=== PATIENT | male | born 1965 | race Caucasian/White ===

== ENCOUNTER 2021-01-09 01:33 | Day surgery (SDC) | payer BC, SELFPAY ==
[2020-12-31 12:38] VITALS: BMI 22.1
[2021-01-09 08:19] VITALS: BP 135/74; PULSE 72; RESP 16; TEMP 36.2; O2SAT 100; BMI 22.5
[2021-01-09] MEDS: LACTATED RINGERS 1,000 ML 150 ML IV CONT (08:28)
--- NOTE | 2021-01-09 09:19 | P.CONGI_ITS ---
Assessment and Plan Assessment and plan (1) Screening for colon cancer: Code(s): Z12.11 - Encounter for screening for malignant neoplasm of colon Status: Acute (2) History of colon polyps: Code(s): Z86.010 - Personal history of colonic polyps Status: Acute Assessment and Plan: Patient reports a prior history of colon polyps. He states his current weight appetite bowel movements are normal. Neoplasia screening colonoscopy is advised now and at intervals in the future. Typically 5 year intervals. GI Consult Note Consult date/time: 01/09/21 09:19 HPI: Joey Rausch is a 55 year old male Referred for screening colonoscopy. Patient has a prior history of colon polyps. He has had several previous colonoscopies. Most recent colonoscopy by Dr. Muir in 2016. Patient states that his current weight appetite bowel movements are normal. He denies abdominal pain. He has had no bleeding. Family history is noncontributory. Review of Systems Review of Systems: All systems reviewed & are unremarkable except as noted in HPI and below PMFSH Social History Social History Smoking status: Never smoker Alcohol intake: never Drinks per week: 1 Substance use: never Substance use type: does not use Living arrangements: with family Gender identity (if verbalized by the patient): Male Spiritual care concerns: No Meds Home Medications and Allergies Home Medications Medication Instructions Recorded Confirmed Type meloxicam 15 mg tablet 15 mg PO DAILY PRN 10/16/20 01/09/21 History multivitamin 1 tablet PO DAILY 10/16/20 01/09/21 History vit 1 tablet PO DAILY 10/16/20 01/09/21 History [id number]-[id number] 500 mg-50 mg-25 mg-40 mg tablet pravastatin 20 mg tablet 20 mg PO DAILY #90 tablet 11/04/20 01/09/21 Rx Allergies Allergy/AdvReac Type Severity Reaction Status Date / Time No Known Allergies Allergy Mild Verified 01/09/21 08:17 Vital Signs Vital Signs - 24 hr 01/09/21 08:19 Temperature 97.1 F L Pulse Rate 72 Respiratory Rate 16 Blood Pressure 135/74 Pulse Oximetry 100 Exam Narrative: Physical exam reveals patient to be alert. Vital signs stable. HEENT exam is unremarkable. Patient is anicteric. Lungs are clear to auscultation and percussion. Heart is without murmur or extra sounds. Abdominal exam bowel sounds are present soft nontender with no hepatosplenomegaly. Digital external rectal exam is normal.
--- NOTE | 2021-01-09 09:31 | WPDANESEPPF ---
Anes - Initial Pre Proc Eval Procedure: Operation Date: 01/09/21 09:15 Proposed Procedures p Screening Colonoscopy - Brody Michael MD Date/Time: 01/09/21 09:31 Surgeon: Brody Michael MD Pre Op Diagnosis: hx of colon polyps Patient Data Age: 55 Gender: M Height: 1.78 m Weight: 71.2 kg Last Vital Signs Temp 97.1 F L 01/09/21 08:19 Pulse 72 01/09/21 08:19 Resp 16 01/09/21 08:19 BP 135/74 01/09/21 08:19 Pulse Ox 100 01/09/21 08:19 Allergies Allergy/AdvReac Type Severity Reaction Status Date / Time No Known Allergies Allergy Mild Verified 01/09/21 08:17 Home Medications Medication Instructions Recorded Confirmed Type meloxicam 15 mg tablet 15 mg PO DAILY PRN 10/16/20 01/09/21 History multivitamin 1 tablet PO DAILY 10/16/20 01/09/21 History vit 1 tablet PO DAILY 10/16/20 01/09/21 History [id number] 500 mg-50 mg-25 mg-40 mg tablet pravastatin 20 mg tablet 20 mg PO DAILY #90 tablet 11/04/20 01/09/21 Rx Patient hx anesthesia problems: none Family hx anesthesia problems: none PMFSH Past Medical History Medical History (Updated 01/09/21 @ 09:23 by Oswald Holder MD) Mixed hyperlipidemia Social History Social History Smoking status: Never smoker Alcohol intake: never Drinks per week: 1 Substance use: never Substance use type: does not use Living arrangements: with family Gender identity (if verbalized by the patient): Male Spiritual care concerns: No Anes - Eval Final PreProcedure Day of Procedure 01/09/21 09:31 Patient weight: normal Heart: regular rate and rhythm Lungs: clear to auscultation Airway: Mallampati scale class II Neurological: alert and oriented Last oral intake: >/= 8 hours ASA classification: II Emergent: no Anesthetic plan: proceed Anesthesia type and monitoring: general GIVS and standard monitoring Informed Consent: The patient's anesthetic plan and its attendant risks and benefits were discussed with the patient/family/POA. Questions were solicited and answers provided to the satisfaction of the patient/family/POA.
[2021-01-09 09:51] VITALS: BP 111/69; PULSE 62; RESP 15; O2SAT 100
[2021-01-09 10:01] VITALS: BP 118/82; PULSE 55; RESP 17; O2SAT 99
[2021-01-09 10:11] VITALS: BP 124/88; PULSE 54; RESP 14; O2SAT 100
== END 2021-01-09 10:20 | disposition home or self-care (01) ==
PROVIDERS: PCP Internal Medicine; Visit Provider Internal Medicine Gastroenterology
PROC: 0DJD8ZZ Inspection of Lower Intestinal Tract, Via Natural or Artificial Opening Endoscopic (ICD-10-PCS; CPT 45378; principal; 2021-01-09 09:15)
DX: Z12.11 Encounter for screening for malignant neoplasm of colon (principal); Z86.010 Personal history of colon polyps; K64.8 Other hemorrhoids
CPT/HCPCS: 45378; J2704; J7120

== ENCOUNTER 2021-05-19 08:31 | Outpatient (CLI) | payer BC, SELFPAY ==
--- NOTE | 2021-05-19 08:44 | EST_ITS ---
Patient Info Name: Joey Rausch Age: 55 years : 1965 Gender: Male Ht: 70 in Wt: 155 lbs BSA: 1.86 m2 HR: 70 bpm BP: 134 / 74 mmHg Heart Rhythm: Sinus Rhythm Exam Date: 05/19/2021 9:01 AM Exam Location: [facility] Stress Patient Status: Outpatient Admit Date: 05/19/2021 Staff Ordering Physician: Vy Hirsch Attending Provider: Vy Hirsch Exercise Technologist: Aleyda Hill CT Exercise Physician: Bk Borden DO Exam Type: CA stress test treadmill Study Info Indications R06.02 - Shortness of breath An exercise stress test was performed. Summary 1. 1. Negative Luis F exercise stress test for ischemic ST changes by ECG criteria. 2. 2. Good functional capacity, achieving 12 METs of workload. 3. 3. Appropriate HR response to exercise. 4. 4. Appropriate HR recovery at 1 minute post exercise. 5. 5. No imaging with stress testing. 6. 6. Patient informed of the above results. Protocol: Luis F Stress ECG Details Stage: REST Duration (min): 1 min : 19 sec Speed (mph): 0.0 Grade (%): 0 HR (bpm): 68 SBP (mmHg): 134 DBP (mmHg): 74 METS: --- Stage: REST Duration (min): 6 min : 5 sec Speed (mph): 0.0 Grade (%): 0 HR (bpm): 75 SBP (mmHg): 134 DBP (mmHg): 74 METS: --- Stage: STAGE 1 Duration (min): 1 min : 0 sec Speed (mph): 1.7 Grade (%): 10 HR (bpm): 88 SBP (mmHg): 134 DBP (mmHg): 74 METS: --- Stage: STAGE 1 Duration (min): 2 min : 0 sec Speed (mph): 1.7 Grade (%): 10 HR (bpm): 107 SBP (mmHg): 134 DBP (mmHg): 74 METS: --- Stage: STAGE 1 Duration (min): 3 min : 0 sec Speed (mph): 1.7 Grade (%): 10 HR (bpm): 96 SBP (mmHg): 180 DBP (mmHg): 76 METS: --- Stage: STAGE 2 Duration (min): 1 min : 0 sec Speed (mph): 2.5 Grade (%): 12 HR (bpm): 113 SBP (mmHg): 180 DBP (mmHg): 76 METS: --- Stage: STAGE 2 Duration (min): 2 min : 0 sec Speed (mph): 2.5 Grade (%): 12 HR (bpm): 113 SBP (mmHg): 188 DBP (mmHg): 71 METS: --- Stage: STAGE 2 Duration (min): 3 min : 0 sec Speed (mph): 2.5 Grade (%): 12 HR (bpm): 118 SBP (mmHg): 188 DBP (mmHg): 71 METS: --- Stage: STAGE 3 Duration (min): 1 min : 0 sec Speed (mph): 3.4 Grade (%): 14 HR (bpm): 131 SBP (mmHg): 201 DBP (mmHg): 73 METS: --- Stage: STAGE 3 Duration (min): 2 min : 0 sec Speed (mph): 3.4 Grade (%): 14 HR (bpm): 140 SBP (mmHg): 201 DBP (mmHg): 73 METS: --- Stage: STAGE 3 Duration (min): 3 min : 0 sec Speed (mph): 3.4 Grade (%): 14 HR (bpm): 147 SBP (mmHg): 209 DBP (mmHg): 76 METS: --- Stage: STAGE 4 Duration (min): 1 min : 0 sec Speed (mph): 4.2 Grade (%): 16 HR (bpm): 162 SBP (mmHg): 209 DBP (mmHg): 76 METS: --- [place]
== END 2021-05-19 08:32 | disposition home or self-care (01) ==
PROVIDERS: PCP Internal Medicine; Visit Provider Nurse Practitioner
DX: R06.02 Shortness of breath (principal)
CPT/HCPCS: 93017

== ENCOUNTER → 2021-05-19 09:30 | Outpatient (CLI) | payer BC, SELFPAY ==
--- NOTE | ~2021-05-19 | XR_ITS ---
XR chest 2V DATE: 05/19/2021 09:41 INDICATION: Shortness of breath TECHNIQUE: 2 views COMPARISON: None FINDINGS: Normal heart size. No hilar or mediastinal enlargement. There is bilateral hyperinflation. No pulmonary infiltrate or consolidation, pleural effusion or pulm onary vascular congestion or pneumothorax is detected. Mild degenerative change of the thoracic spine. IMPRESSION: Bilateral hyperinflation Reviewed, dictated and finalized at location A. MAKER HELPER IMPRESSION: Bilateral hyperinflation
== END ==
PROVIDERS: Visit Provider Nurse Practitioner
DX: R06.02 Shortness of breath (principal); M47.814 Spondylosis without myelopathy or radiculopathy, thoracic region
CPT/HCPCS: 71046

== ENCOUNTER 2023-11-03 13:41 | Outpatient (CLI) | payer BC, SELFPAY ==
--- NOTE | ~2023-11-03 | XR_ITS ---
XR knee RT 3V Ordering provider: Umair Nelson MD History: . NO INJURY BILATERAL KNEE PAIN . Comparison: None. FINDINGS: BONES: No acute fracture or dislocation. Postoperative changes in the distal metaphysis of the femur and proximal tibia. JOINT SPACES: Chondrocalcinosis in the medial and lateral menisci. SOFT TISSUES: Normal. IMPRESSION: No acute osseous abnormality right knee. Postoperative changes. Chondrocalcinosis. Reviewed, dictated and finalized at location A.
--- NOTE | ~2023-11-03 | XR_ITS ---
XR knee LT 3V 11/03/2023 14:02 Indication: Left knee pain Procedure: 3 views left knee Comparison: No prior studies for comparison. Findings: There is mild osteoarthritis of the left knee. There is chondrocalcinosis. There are change s of ACL repair. No acute fracture or traumatic malalignment. Impression: 1: Mild osteoarthritis of the left knee with chondrocalcinosis. 2: No acute fracture or traumatic malalignment. Reviewed, dictated and finalized at location B. Impression: 1: Mild osteoarthritis of the left knee with chondrocalcinosis. 2: No acute fracture or traumatic malalignment.
== END 2023-11-03 13:42 ==
PROVIDERS: PCP Family Medicine; Visit Provider Family Medicine
DX: M11.261 Other chondrocalcinosis, right knee (principal); M11.262 Other chondrocalcinosis, left knee; M17.12 Unilateral primary osteoarthritis, left knee; Z98.890 Other specified postprocedural states
CPT/HCPCS: 73562

== ENCOUNTER 2023-11-04 14:56 | Emergency (ER) | payer BC, SELFPAY ==
--- NOTE | ~2023-11-04 | XR_ITS ---
EXAMINATION: XR finger 1st LT min 2V DATE: 11/04/2023 15:28 INDICATION: Blunt trauma to the left thumb TECHNIQUE: Dorsal palmar, lateral and oblique views of the left first digit were obtained COMPARISON: None FINDINGS: Nondisplaced extra articular fracture extending across the diaphysis of the left first distal phalanx . There is an old healed fracture at the dorsal base of the first distal phalanx with residual thin c erclage wire. No other fractures identified. Small amount of chondrocalcinosis at the wrist, triscaph e and first metacarpophalangeal joints. Polyarticular osteoarthritis, mild to moderate at the first c arpometacarpal joint and mild at the triscaphe, first metacarpophalangeal and first interphalangeal j oints. IMPRESSION: 1. Nondisplaced extra-articular diaphyseal fracture of the left first distal phalanx. Reviewed, dictated and finalized at location A. IMPRESSION: 1. Nondisplaced extra-articular diaphyseal fracture of the left first distal ph alanx.
[2023-11-04 15:16] VITALS: BP 136/93; PULSE 84; RESP 16; TEMP 37.3; O2SAT 99
--- NOTE | 2023-11-04 15:21 | ED.GENADULT ---
HPI - General Adult General Chief complaint: Extremity Injury, Upper Stated complaint: left thumb injury Time Seen by Provider: 11/04/23 15:34 Source: patient, RN notes reviewed and old records reviewed Mode of arrival: ambulatory Limitations: no limitations History of Present Illness HPI narrative: 57-year-old male to [facility] for complaint left distal thumb pain after closing it in tailgate of vehicle prior to arrival. Patient endorses history of surgical tendon repair to same digit. Patient denies numbness, pain radiating up into the hand or wrist. Patient no acute distress. Related Data Allergies Allergy/AdvReac Type Severity Reaction Status Date / Time No Known Allergies Allergy Mild Verified 11/02/23 09:14 Review of Systems Review of Systems: All systems reviewed & are unremarkable except as noted in HPI and below Constitutional: Constitutional: Reports no additional constitutional complaints Eyes: Eyes: Reports no additional eye complaints ENT: Reports system reviewed and no additional complaints, except as documented Cardiovascular: Cardiovascular: Reports no additional cardiovascular complaints, Denies chest pain and Denies dyspnea Respiratory: Respiratory: Reports no additional respiratory complaints, Denies cough and Denies dyspnea Musculoskeletal: Musculoskeletal: Reports no additional musculoskeletal complaints Neurologic: Reports system reviewed and no additional complaints, except as documented Psychiatric: Psychiatric: Reports no additional psychiatric complaints PMFSH Past Medical History Medical History Mixed hyperlipidemia Social History Social History Smoking status: Never smoker Alcohol intake: current Drinks per week: 0 Alcohol use details: 1 drink every 3-4 weeks Substance use: never Substance use type: does not use Lack of Transportation: No Lack of Food: Never True Current Housing: I Do Not Have Housing Concerned About Future Housing: No Difficulty Paying Gas/Electric Bills: No Difficulty Paying for Meds: No Currently Unemployed: No Education: Bachelor's Degree Difficulty w/ Childcare or Family Care: No Living arrangements: with family Gender identity (if verbalized by the patient): Male Spiritual care concerns: No Comments At the time of my signature, I reviewed and agree with the nursing past medical, surgical, social, and family history. There is no relevant family history pertinent to the patient complaint. Exam Const: General: cooperative, healthy appearing, comfortable, no acute distress, alert and well nourished Nutritional Appearance: well nourished Orientation/consciousness: patient oriented x3 Limitations: no limitations HENMT: Head: normal to inspection Ears: external ears normal Face/Nose/Sinus: Normal external nose present, Normal nares present, normal facial exam, No erythema and No edema Face and sinus: normal facial exam, no erythema and no edema Mouth: Yes Normal oral and palatal mucosa present Eyes: General: appearance normal, both eyes and all related structures Neck: Neck: normal visual inspection, full ROM and no meningeal signs Lymphatic: no lymphadenopathy noted and no lymphedema noted Chest: Chest palpation & inspection: normal inspection of the chest Resp: Effort & Inspection: normal respiratory effort and able to speak in complete sentences Auscultation: clear to auscultation bilaterally Cardio: Jugular venous distension: no JVD Rate: regular rate Rhythm: regular rhythm Back/Spine/Pelvis: Cervical Spine: cervical ROM normal Skin: General skin exam: normal color, no rashes or lesions noted and turgor normal Neuro: General: patient oriented x3, gait normal, moves all extremities and no meningeal signs Speech: normal speech Gait exam (Neuro): Normal gait present Extrem: General: normal to insp
== END 2023-11-04 16:25 | disposition home or self-care (01) ==
PROVIDERS: Emergency Provider Nurse Practitioner Family; PCP Family Medicine
DX: S62.525A Nondisplaced fracture of distal phalanx of left thumb, initial encounter for closed fracture (principal); X58.XXXA Exposure to other specified factors, initial encounter; E78.2 Mixed hyperlipidemia
CPT/HCPCS: 29130; 73140; 99214; G0463

== ENCOUNTER 2023-11-24 15:37 | Outpatient (CLI) | payer BC, SELFPAY ==
--- NOTE | ~2023-11-24 | XR_ITS ---
EXAMINATION: XR finger 1st LT min 2V DATE: 11/24/2023 16:12 INDICATION: Fracture of unspecified phalanx of left thumb. TECHNIQUE: 3 views of left thumb were obtained. COMPARISON: Left thumb radiograph 11/04/2023 FINDINGS: There is a comminuted intra-articular fracture of first distal phalanx. There is a [place] o f wire involving the dorsal basal fracture fragment. The dorsal basal fracture fragment is displaced 2 mm posterior relative to the rest of the bone. There is mild osteoarthritis of first carpometacarpa l joint, first metacarpophalangeal joint, and first interphalangeal joint. IMPRESSION: 1. Comminuted fracture of first distal phalanx with interval worsening in alignment. Reviewed, dictated and finalized at location E. IMPRESSION: 1. Comminuted fracture of first distal phalanx with interval worsening in align ment.
== END 2023-11-24 15:38 ==
PROVIDERS: PCP Family Medicine; Visit Provider Family Medicine
DX: S62.522A Displaced fracture of distal phalanx of left thumb, initial encounter for closed fracture (principal)
CPT/HCPCS: 73140

== ENCOUNTER 2023-12-22 13:07 | Outpatient (CLI) | payer BC, SELFPAY ==
--- NOTE | ~2023-12-22 | XR_ITS ---
XR finger 1st LT min 2V 12/22/2023 14:06 Indication: Left thumb fracture Procedure: 3 views left first finger Comparison: 11/24/2023 Findings: Comminuted intra-articular fracture left first distal phalanx. There is a cerclage wire ove rlying the dorsal basal fracture fragment which is displaced approximately 2 mm. Moderate soft tissue swelling. Mild osteoarthritis of the first carpal metacarpal joint. No significant interval healing. Impression: 1: Stable alignment of comminuted fracture left first distal phalanx without significant interval helottie lakhani. Reviewed, dictated and finalized at location B. Impression: 1: Stable alignment of comminuted fracture left first distal phalanx without si gnificant interval healing.
== END 2023-12-22 13:08 ==
PROVIDERS: PCP Family Medicine; Visit Provider Plastic Surgery
DX: S62.522A Displaced fracture of distal phalanx of left thumb, initial encounter for closed fracture (principal); X58.XXXA Exposure to other specified factors, initial encounter
CPT/HCPCS: 73140

== ENCOUNTER 2024-02-01 16:27 | Emergency (ER) | payer BC, SELFPAY ==
--- NOTE | ~2024-02-01 | XR_ITS ---
EXAMINATION: XR foot LT min 3V DATE: 02/01/2024 16:49 INDICATION: Left foot pain. Injury. TECHNIQUE: 4 views of left foot were obtained. COMPARISON: None. FINDINGS: Bone alignment is normal. No fracture. There is mild osteoarthritis of first metatarsophala ngeal joint and talonavicular joint. There is an enthesophyte at plantar aspect of calcaneal tuberosi ty. IMPRESSION: 1. Mild polyarticular osteoarthritis. Reviewed, dictated and finalized at location A.
[2024-02-01 16:49] VITALS: BP 157/81; PULSE 86; RESP 16; TEMP 37.4; O2SAT 100
[2024-02-01] MEDS: TETANUS,DIPHTHERIA,AC PERTUSSIS ADULT (0.5 ML) BOOSTRIX IM (17:25)
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
== END 2024-02-01 17:30 | disposition home or self-care (01) ==
PROVIDERS: Emergency Provider Nurse Practitioner Family; PCP Family Medicine
DX: S93.602A Unspecified sprain of left foot, initial encounter (principal); S90.32XA Contusion of left foot, initial encounter; V18.4XXA Pedal cycle driver injured in noncollision transport accident in traffic accident, initial encounter; Z23 Encounter for immunization
CPT/HCPCS: 73630; 90471; 90715; 99213; G0463

== ENCOUNTER 2024-02-23 11:59 | Outpatient (CLI) | payer BC, SELFPAY ==
--- NOTE | ~2024-02-23 | CT_ITS ---
EXAMINATION: CT abdomen pelvis w con DATE: 02/23/2024 12:27 INDICATION: Right lower quadrant abdominal pain. TECHNIQUE: Computed tomography (CT) of the abdomen and pelvis was performed with 100 mL Omnipaque 350 intravenous contrast. Automated exposure control and iterative reconstruction technique were employe d. The dose-length product was 396.30 mGy-cm. COMPARISON: None. FINDINGS: The visualized portions of lung bases demonstrate mild atelectasis. No pleural effusion. Th e heart size is normal. No pericardial effusion. The liver, gallbladder, spleen, pancreas, adrenal gl ands, and left kidney are normal. There is a 7 mm cyst in right kidney. The appendix is normal. There is a right inguinal hernia containing fat. There is diverticulosis of the colon without evidence of diverticulitis. There is fat stranding around an epiploic appendage of ascending colon, consistent wi th epiploic appendagitis. There are no pathologically enlarged lymph nodes. There is no ascites. Ther e is severe lumbar spondylosis. IMPRESSION: 1. Epiploic appendagitis of ascending colon. 2. Right inguinal hernia containing fat. Reviewed, dictated and finalized at location A.
== END 2024-02-23 12:00 | disposition home or self-care (01) ==
LOC: ANHIMG 12:03
PROVIDERS: PCP Family Medicine; Visit Provider Nurse Practitioner Family
DX: K63.89 Other specified diseases of intestine (principal); K40.90 Unilateral inguinal hernia, without obstruction or gangrene, not specified as recurrent; R10.31 Right lower quadrant pain
CPT/HCPCS: 74177; Q9967

== ENCOUNTER 2024-10-24 09:14 | Emergency (ER) | payer BC, SELFPAY ==
--- NOTE | 2024-10-24 09:17 | ED.URI ---
HPI - URI/Sore Throat General Chief Complaint: Upper Respiratory Infection Stated Complaint: Sore Throat Time Seen by Provider: 10/24/24 09:34 Source: patient and RN notes reviewed Mode of arrival: ambulatory Limitations: no limitations History of Present Illness HPI Narrative: 58-year-old male presents with concern for 3 day history of sore throat mainly on the left side. Reports today started having nasal congestion and postnasal drainage. He denies fever, aches, chills, sweats. Reports his doctor suggested he get checked out. MD elicited complaint: sore throat Related Data Allergies Allergy/AdvReac Type Severity Reaction Status Date / Time No Known Allergies Allergy Mild Verified 10/24/24 09:20 Review of Systems Review of Systems: CONSTITUTIONAL: Denies malaise, chills, sweats, or fever. EYES: Denies visual changes, redness, or discharge. ENT: Reports rhinorrhea, congestion, and sore throat. CARDIOVASCULAR: Denies chest pain, palpitations, or edema. RESPIRATORY: Denies cough. Denies dyspnea. GASTROINTESTINAL: Denies abdominal pain, nausea, vomiting, diarrhea SKIN: Denies rash or itching. MUSCULOSKELETAL: Denies myalgia. NEUROLOGIC: Denies headache. All systems reviewed & are unremarkable except as noted in HPI and below PMFSH Past Medical History Medical History Mixed hyperlipidemia Surgical History Surgical History History of knee surgery Social History Social History Smoking status: Never smoker Alcohol intake: current Drinks per week: 0 Alcohol use details: 1 drink every 3-4 weeks Substance use: never Substance use type: does not use Do You Feel Safe in your Home?: Yes Lack of Transportation: No Lack of Food: Never True Current Housing: I Do Not Have Housing Concerned About Future Housing: No Difficulty Paying Gas/Electric Bills: No Difficulty Paying for Meds: No Currently Unemployed: No Education: Bachelor's Degree Difficulty w/ Childcare or Family Care: No Living arrangements: with family Gender identity (if verbalized by the patient): Male Spiritual care concerns: No Comments At time of signature, agree with nursing past medical, surgical, social and family history. There is no relevant family history pertinent to the presenting complaint Exam Narrative: GENERAL: Well-appearing, well-nourished, and in no acute distress. HEAD: Normocephalic EYES: PERRLA, conjunctivae clear ENT: Nares clear. Mucous membranes moist. TM pearly lawson with sharp light reflex bilaterally; no tragal tenderness. Oropharynx mildly erythematous without lesions. Tonsils not enlarged and without exudate, no drooling, no hoarseness, no trismus, uvula midline. NECK: Supple. No lymphadenopathy CHEST: Clear to auscultation, breath sounds equal. No wheezing, rhonchi, rales, or stridor. No respiratory distress, speaks in full sentences. HEART: Regular rate and rhythm. No murmur heard. SKIN: Warm, dry, no rash. NEURO: Alert and oriented x3. PSYCH: Normal mood and affect Course Course Emergency Course: Patient is aware of diagnosis, understands and agrees to treatment plan. Anticipatory guidance given. Patient agrees to follow-up as directed and is aware of reasons to seek care at the emergency department. Portions of this record may have been created with voice recognition software Level of Care: [facility] Visit Vital Signs Vital signs: Reviewed. MDM - URI/Sore Throat MDM Narrative Medical decision making narrative: Differential diagnosis considered: De Santiago virus, strep pharyngitis, allergic rhinitis, upper respiratory tract infection, sinusitis, rhinosinusitis, nasopharyngitis. viral pharyngitis, otitis media, otitis externa, pneumonia, bronchitis, viral cough syndrome, viral syndrome, and influenza. Exam findings show no acute concerns or changes; patient is non-toxic appearing and is in no distress. Patient is appropriate for outpatient treatment and follow-up. Lab Data Attestation: I reviewed the patient's lab results. Critical Care Time Critical Care Time Critical Care Time: No Discharge Plan Discharge Clinical Impression: Upper respiratory infection Patient Disposition: Home Condition: Stable Instructions: Upper Respiratory Infection (ED) Additional Instructions: Your rapid strep swab was negative today at [facility]. A throat culture will be sent to the laboratory for further testing. If the test is positive, you will receive a phone call within 48 hours and an appropriate antibiotic will be initiated at that time. Your symptoms are likely due to a viral illness, which is not treated with antibiotics. Viral symptoms can be present for up to a few weeks. -Alternate Tylenol and Motrin per package directions for fever or pain. -Antihistamine medication such as Benadryl at night and Zyrtec during the day can help improve symptoms. -Eat and drink things that are easy to swallow, like tea or soup, or popsicles to suck on. -Oral rinses such as: Salt water gargles and/or may use topical anesthetic (eg. Chloraseptic spray) or lozenges to relieve dryness or throat pain). -Frequent hand washing or hand electric power machine operator is one of the best ways to prevent spread of infection. -Follow up with primary care provider in 2-3 days if condition is not improving; or seek ER visit if you have trouble breathing, cannot drink enough fluids, have muffled voice, difficulty opening your mouth, or severe swelling. Patient Language: Persian Prescriptions: New pseudoephedrine HCl [12 Hour Decongestant] 120 mg tablet extended release 120 mg PO Q12H PRN (Reason: nasal congestion) Qty: 20 0RF ipratropium bromide 21 mcg (0.03 %) spray,non-aerosol 2 spray NASAL TID PRN (Reason: nasal drainage) Qty: 30 0RF Rx Instructions: administer into each nostril No Action pravastatin 20 mg tablet See Rx Instructions .ROUTE .COMPLEX Qty: 90 0RF Dose Instruction: TAKE 1 TABLET BY MOUTH DAILY Rx Instructions: TAKE 1 TABLET BY MOUTH DAILY Follow-up/Referrals: Umair Nelson MD [Primary Care Provider] - Time of Disposition: 09:41
[2024-10-24 09:30] VITALS: BP 143/86; PULSE 79; RESP 14; TEMP 36.6; O2SAT 99
[2024-10-24 09:46] LABS: EDSTREPNEGPOS1 Negative (Negative)
== END 2024-10-24 09:45 | disposition home or self-care (01) ==
PROVIDERS: Emergency Provider Nurse Practitioner; PCP Family Medicine
DX: J06.9 Acute upper respiratory infection, unspecified (principal); E78.2 Mixed hyperlipidemia
CPT/HCPCS: 87081; 87880; 99213; G0463

== ENCOUNTER 2024-12-01 11:09 | Outpatient (CLI) | payer BC, SELFPAY ==
--- NOTE | ~2024-12-01 | XR_ITS ---
Lumbosacral Spine: AP and lateral views Clinical History: Pain Findings: The normal lordotic curve is maintained. The vertebral bodies and posterior elements are i ntact. There is mild degenerative disc narrowing at L4-L5. There is moderate to advanced facet arthro khang throughout the lumbar spine, worst at L3-S1.. The sacroiliac joints are normally outlined. Impression: Moderate degenerative spondylosis, as above. Reviewed, dictated and finalized at location M. Impression: Moderate degenerative spondylosis, as above.
--- NOTE | ~2024-12-01 | US_ITS ---
US soft tissue groin LT 12/01/2024 11:29 Indication: Left inguinal groin pain Procedure: High-resolution Limited ultrasound of the left groin Comparison: No prior studies for comparison. Findings: There is bowel with motility extending into the left inguinal canal consistent with hernia. Impression: 1: Left inguinal hernia. Reviewed, dictated and finalized at location A. Impression: 1: Left inguinal hernia.
== END 2024-12-01 11:10 | disposition home or self-care (01) ==
LOC: MICIMG 11:10
PROVIDERS: PCP Family Medicine; Visit Provider Family Medicine
DX: K40.90 Unilateral inguinal hernia, without obstruction or gangrene, not specified as recurrent (principal); M47.816 Spondylosis without myelopathy or radiculopathy, lumbar region; M51.369 Other intervertebral disc degeneration, lumbar region without mention of lumbar back pain or lower extremity pain
CPT/HCPCS: 72100; 76882

== ENCOUNTER 2025-01-01 08:54 | Outpatient (CLI) | payer BC, SELFPAY ==
--- NOTE | ~2025-01-01 | US_ITS ---
EXAMINATION: US soft tissue groin RT DATE: 01/01/2025 09:12 INDICATION: Bilateral inguinal hernia without obstruction TECHNIQUE: Multiple grayscale and Doppler ultrasound images of the right inguinal region were obtaine d. COMPARISON: CT dated 03/04/2024 FINDINGS: A loop of peristalsing bowel is seen deep to the distal right rectus abdominis muscle medial to the r ight hypogastric artery and vein. No evident hernia identified. The imaged region is positioned cepha lad to the right inguinal canal. A very small fat-containing right femoral hernia was identified at t he time of the prior CT. IMPRESSION: 1. Imaged region appears normal but is located slightly cephalad to the entrance to the right inguina l canal where there was a very small fat-containing inguinal hernias at the time of the prior CT. Reviewed, dictated and finalized at location A. IMPRESSION: 1. Imaged region appears normal but is located slightly cephalad to the entranc e to the right inguinal canal where there was a very small fat-containing ingui nal hernias at the time of the prior CT.
== END 2025-01-01 08:55 | disposition home or self-care (01) ==
LOC: MICIMG 08:55
PROVIDERS: PCP Family Medicine; Visit Provider Surgery
DX: K40.90 Unilateral inguinal hernia, without obstruction or gangrene, not specified as recurrent (principal)
CPT/HCPCS: 76882

== ENCOUNTER 2025-01-09 09:29 | Outpatient (CLI) | payer BC, SELFPAY ==
--- OUTSIDE RECORDS SUMMARY | 2009-05-14 07:45 | XMS_ITS | Continuity of Care Document ---
Author Organization [facility] Address [address] [facility] [address] [place] [address] Phone Care Team Providers Care Shooter'S Helper Name Role Phone Nicole Coker Unavailable Unavailable Procedures Procedure Date Eye Exam Established Pt Eye Exam, New Patient Advance Directives Directive Yes / No Effective Date File Name No Information Encounters Encounter Description Practice Location Reason(s) For Visit Diagnoses Date Provider Providers Copied on Encounter [facility], [address] [place] [address] [address], [place], [place], [id number], tel:[phone] [facility] No Information 9-200 9 Sheela Rivera. [address] , [address], [place], [place], [facility], . tel:[phone] [facility], [address] [place] [address] [address], [place], [place], [id number], tel:[phone] [facility] No Information 5-200 9 Sheela Bradley [address] , [address], [place], [place], [facility], [place]. tel:[phone] Family History Family Member Type Diagnosis Age At Onset No Information Payers Payer name Insurance type Covered constitution party ID Authoriza tion(s) No Information Social History Type Description Quantity Date Captured Comments Sex Male Smoking Status No Information Chief Complaint And Reason For Visit No Information Reason For Referral Reason For Referral No Information History Of Present Illness Encounter Date Complaint History Of Prese nt Illness No Information Functional Status Date Functional Assessmen t No Information Instructions Date Instruction Additional Infor mation No Information Assessments Type Assessment Date No Information Patient Care Teams Name Effective Dates (start - stop) Status Members No Information
--- NOTE | 2025-01-09 09:44 | ECG_ITS ---
Test Date: 2025-01-09 09:51:57 Measurements Intervals Colbert Rate: 62 P: 2 PA: 171 QRS: 39 QRSD: 110 T: 47 QT: 369 QTc: 376 Interpretive Statements SINUS RHYTHM BASELINE ARTIFACT- I, III, AVR, AVL, AVF NORMAL ECG No previous ECG available for comparison Electronically Signed On 01-09-2025 09:53:54 CDT by Bk Borden D.O.
--- OUTSIDE RECORDS SUMMARY | 2025-01-09 09:53 | XMS_ITS | Clinical Summary ---
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 09/03/2014 Social History Tobacco Use Types Packs/Day Years Used Date Smoking Tobacco: Never Assessed Sex and Gender Information Value Date Recorded Sex Assigned at Not on file 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 Gender Identity Male 01/03/2023 8:20 AM CDT Sexual Orientation Not on file Obstetrics History Last Filed Vital Signs Vital Sign Reading Time Taken Comments Blood Pressure 130/70 01/04/2023 9:00 AM CDT Pulse 70 01/04/2023 9:00 AM CDT Temperature 37.1 C (98.8 F) 01/04/2023 9:00 AM CDT Respiratory Rate 16 01/04/2023 9:00 AM CDT Oxygen Saturation 97% 01/04/2023 9:00 AM CDT Inhaled Oxygen Concentration - - Weight 73.2 kg (161 lb 6.4 oz) 01/04/2023 9:00 A M CDT Height 175.3 cm (5' 9) 01/04/2023 9:00 AM CDT Body Mass Index 23.83 01/04/2023 9:00 AM CDT Plan of Treatment Health Maintenance Due Date Last Done Comments Colon Cancer Screening-Colonoscopy 1964 Depression Screening 1964 Hepatitis C Screening 1964 Prostate Cancer Screening-PSA 1964 DTaP/Tdap/Td Vaccine (1 - Tdap) 12/23/1975 Hepatitis B Screening 1982 Regular Well Visit/Exam 18-64 1982 Covid-19 Vaccine ( - season) 2024 03/03/2022, 03/14/2021, 08/25/2020, Additional history exists Influenza Vaccine (#1) 2025 , 02/26/2021, 02/15/2020, Additional history exists Zoster Vaccine Completed 01/13/2022, 07/14/2021 Pneumococcal vaccine <65 Aged Out No longer eligible based on patient's age to complete this topic Insurance CHOICE [facility] PPO [place] Care Teams Deployment Technician Relationship Specialty Start Date End Date Umair Nelson MD PCP - General Family Practice 01/04/23
--- OUTSIDE RECORDS SUMMARY | 2025-01-09 09:54 | XMS_ITS | Clinical Summary ---
Author Organization [facility] Address [address] [place] [address] Care Team Providers Care Rn Long Term Care Name Role Phone Pro Berger MD Primary Care Provider [phone] Source Comments [facility],non-[facility] Affiliates and Associated Physician Practices is amultiple site organization consisting of ambulatory clinics and hospital sitesin [place], [place], [place] and [place]. This disclosure is being madepursuant to the Care Everywhere program and may not contain all information available regarding this patient. 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 Gender Identity Not on file Sexual Orientation Not on file Last Filed Vital Signs Vital Sign Reading Time Taken Comments Blood Pressure 122/81 12/03/2014 2:48 PM CDT Pulse 66 12/03/2014 2:48 PM CDT Temperature 36.7 C (98.1 F) 10/17/2014 1:03 PM CDT Respiratory Rate - - Oxygen Saturation 99% 12/03/2014 2:48 PM CDT Inhaled Oxygen Concentration - - Weight 72.6 kg (160 lb) 12/03/2014 2:48 PM CDT Height 177.8 cm (5' 10) 12/03/2014 2:48 PM CDT Body Mass Index 22.96 12/03/2014 2:48 PM CDT Plan of Treatment Health Maintenance Due Date Last Done Comments COLOGUARD (AGES 45-75) - COL ON CA SCREENING 1964 COLON MONITORING 1964 COLONOSCOPY - COLON CA SCREENING 1964 CT COLONOGRAPHY - COLON CA SCREENING 1964 Colorectal Cancer Screening 1964 FIT - COLON CA SCREENING 1964 FLEX SIG - COLON CA SCREENING 1964 LIPID TESTING 1964 HIV SCREENING 12/23/1979 HEPATITIS C SCREENING 12/18/1982 DTAP/TDAP/TD VACCINES (1 - Tdap) 12/23/1983 PNEUMOCOCCAL VACCINE 50+ (1 of 1 - PCV) 2014 ZOSTER VACCINE (1 of 2) 2014 COVID-19 VACCINE (1 - 2023-2 5 season) 2024 DEPRESSION SCREENING 05/17/2024 INFLUENZA VACCINE (#1) 2025 Respiratory Syncytial Virus (RSV) Vaccine Pt: or over 60 yrs (1 - 1-dose 75+ series) 12/23/2039 HEPATITIS B VACCINE Aged Out No longe r eligible based on patient's age to complete this topic HIB VACCINE Aged Out No longer eligi ble based on patient's age to complete this topic HPV VACCINE Aged Out No longer eligi ble based on patient's age to complete this topic MENINGOCOCCAL (Group B) VACC INE SHARED DECISION-MAKING Aged Out No longer eligibl e based on patient's age to complete this topic MENINGOCOCCAL GROUPS A/C/Y/W VACCINE Aged Out No longer eligible b ased on patient's age to complete this topic Insurance [facility] Care Teams Rn Long Term Care Relationship Specialty Start Date End Date Pro Berger MD [address] [place] [address] PCP - General 07/07/11
[2025-01-09 10:00] LABS: Hematocrit 43.4 % (42.0-52.0); Hemoglobin 14.3 g/dL (14.0-18.0); Immature Granulocyte Percent A 0.3 % (0-0.5); Lymphocytes Absolute Auto 2.37 K/mm3 (0.9-3.2); Mean Corpuscular HGB Conc 32.9 g/dl (32-36); Mean Corpuscular Hemoglobin 30.3 pg (26-34); Mean Corpuscular Volume 91.9 fl (80-100); Nucleated Red Blood Cells Absolute Auto 0.000 K/mm3 (0.0-0.012); Nucleated Red Blood Cells Perc 0.0 % (0.0-0.2); Platelet Count Result 268 k/mm3 (150-375); Red Blood Count 4.72 M/mm3 (4.6-6.20); White Blood Count 6.5 K/mm3 (4.5-10.0)
== END 2025-01-09 09:30 | disposition home or self-care (01) ==
LOC: ANHSURGERY 09:33
PROVIDERS: PCP Family Medicine; Visit Provider Surgery
DX: Z01.818 Encounter for other preprocedural examination (principal); E78.2 Mixed hyperlipidemia; K40.90 Unilateral inguinal hernia, without obstruction or gangrene, not specified as recurrent
CPT/HCPCS: 36415; 85025; 86850; 86900; 86901; 93005

== ENCOUNTER 2025-01-12 01:38 | Day surgery (SDC) | payer BC, SELFPAY ==
--- OUTSIDE RECORDS SUMMARY | 2009-05-14 07:45 | XMS_ITS | Continuity of Care Document ---
Author Organization [facility] Address [address] [facility] [address] [place] [address] Phone Care Team Providers Care Roof Panel Hanger Name Role Phone Nicole Coker Unavailable Unavailable Procedures Procedure Date Eye Exam Established Pt Eye Exam, New Patient Advance Directives Directive Yes / No Effective Date File Name No Information Encounters Encounter Description Practice Location Reason(s) For Visit Diagnoses Date Provider Providers Copied on Encounter [facility], [address] [place] [address] [address], [place], [place], [id number], tel:[phone] [facility] No Information 9-200 9 Sheela Rivera. [address] , [address], [place], [place], [facility], . tel:[phone] [facility], [address] [place] [address] [address], [place], [place], [id number], tel:[phone] [facility] No Information 5-200 9 Sheela Bradley [address] , [address], [place], [place], [facility], [place]. tel:[phone] Family History Family Member Type Diagnosis Age At Onset No Information Payers Payer name Insurance type Covered democrat ID Authoriza tion(s) No Information Social History [...]
--- NOTE | 2025-01-05 13:42 | PC.NURSE ---
Report to the Outpatient Waiting Room, entrance under the green pavilion located off [facility], at time __10 AM on date __01/12/25 . Planned Procedure Time: _1200 NOON .? Time changes happen often and if your time is changed the preop area will call you the afternoon before. - You and your visitor will be asked to self-screen and do not enter if you have any COVID symptoms. Please call surgeon if you need to reschedule. - A mask is optional within the hospital at this time. Patients may have clear liquids (water, carbonated beverages, clear teas, apple juice) until 3 hours prior to surgery ( 9AM)with a maximum of 20 ounces. - No food from midnight until time of surgery and no smoking, or chewing tobacco (or any form of nicotine). No chewing gum, candy or mints. Take only the following medications with a SIP of water on the morning of surgery: ___NONE DO NOT STOP ANY OF YOUR OTHER PRESCRIPTION MEDICATIONS PRIOR TO SURGERY EXCEPT THE FOLLOWING Hold all vitamins and supplements for 3 days per anesthesiologist.LAST DOSE 01/08/25 Medications to discontinue per physician NONE Date to take last dose Please no make-up, nail uzbek, hairspray, perfume, deodorant, or body powder the day of surgery.? No jewelry (including any body piercings) or valuables the day of surgery, leave them at home.? Please take a shower or bath the night before, or the morning of, surgery with an antibacterial soap.? Wear comfortable, loose fitting clothing.? Children are encouraged to wear pajamas. - Jewelry must be removed prior to entering the operating room.? Rings and piercings that are not removed may be cut off. - The hospital will not accept responsibility for valuables.? - Please leave all valuables, including medications, at home the day of surgery. If you are going home after surgery, a licensed fleet driver must drive you home.? - NO public transportation without another adult if you receive anesthesia. - We recommend that an adult stay with you for 24 hours following discharge. - We also recommend that you do not drive, make important decision, drink alcoholic beverages, or take any drugs that were not prescribed by your health care provider for at least 24 hours after your discharge time. Follow any additional instructions given to you from your surgeon. Telephone instructions given to __PATIENT and asked if any additional questions and then verbalized understanding. Patient advised to call surgeon office or pre surgery nurse liaison [phone] if any additional questions.
[2025-01-05 14:01] VITALS: BMI 22.9
[2025-01-12] VITALS (11 sets, daily range): BP systolic 120–148; BP diastolic 64–90; PULSE 62–78; RESP 10–16; TEMP 36.4–36.5; O2SAT 90–100
--- OUTSIDE RECORDS SUMMARY | 2025-01-12 01:42 | XMS_ITS | Clinical Summary ---
Author Organization [facility] [address] Address [address] [place] [id number] Care Team Providers Care Building Pressure Washer Name Role Phone Umair Nelson MD Primary Care Provider [phone] Allergies No known active allergies Medications pravastatin (PRAVACHOL) 20 mg tablet 10/12/2022 Active Active Problems Problem Noted Date Diagnosed Date Other specified acquired def ormities of musculoskeletal system 09/03/2014 Social History Tobacco Use Types Packs/Day Years Used Date Smoking Tobacco: Never Assessed Sex and Gender Information Value Date Recorded Sex Assigned at Not on file 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
--- OUTSIDE RECORDS SUMMARY | 2025-01-12 01:42 | XMS_ITS | Clinical Summary ---
Author Organization [facility] Address [address] [place] [address] Care Team Providers Care Meat Molder Name Role Phone Pro Berger MD Primary Care Provider [phone] Source Comments [facility],non-owned Affiliates and Associated Physician Practices is amultiple site organization consisting of ambulatory clinics and hospital sitesin [place], [place], [place] and [place]. This disclosure is being madepursuant to the Care Everywhere program and may not contain all information available regarding this patient. 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
--- NOTE | 2025-01-12 08:07 | PM.SD2 ---
Same Day Admit/Disch: HPI History of Present Illness Chief complaint: Bilateral Inguinal Hernia Narrative: Joey Rausch is a 59 year old male Who has been noticing left groin pain since the October. He is an avid cyclist writing his bike several times a week. He has also noticed pain in the right inguinal area. This is bothersome when he is riding his bike or exercising, doing vigorous activity. His exam did not show a hernia on either the right or the left side. However, the left inguinal ultrasound showed an inguinal hernia with some bowel in the hernia defect. He had a CT scan in 2023 that showed a fat containing right inguinal hernia. He had an ultrasound on the right side which apparently was imaged cephalad to the entrance to the right inguinal canal and was negative. However the radiologist made reference to the previous CT scan that did show a right inguinal hernia. Plan is to proceed with robotic laparoscopic repair of at least the left inguinal hernia and probably the right inguinal hernia unless at surgery, the right side is completely normal. [facility] Past Medical History Medical History Mixed hyperlipidemia Surgical History Surgical History History of knee surgery Family History Family History Mother Cerebrovascular accident Father Cerebrovascular accident Social History Social History Smoking status: Never smoker Alcohol intake: current Drinks per week: 0 Alcohol use details: 1 drink every 3-4 weeks Substance use: never Substance use type: does not use Do You Feel Safe in your Home?: Yes Lack of Transportation: No Lack of Food: Never True Current Housing: I Have Housing Concerned About Future Housing: No Difficulty Paying Gas/Electric Bills: No Difficulty Paying for Meds: No Currently Unemployed: No Education: Bachelor's Degree Difficulty w/ Childcare or Family Care: No Living arrangements: with family Gender identity (if verbalized by the patient): Male Spiritual care concerns: No Same Day Admit/Disch: Med Pre-admit Medications Home Medications ?Medication ?Instructions ?Recorded ?Confirmed ?Type pravastatin 20 mg tablet See Rx Instructions .Route 08/01/24 01/12/25 Rx .COMPLEX #90 tabs meloxicam 15 mg tablet 15 mg PO DAILY #90 tabs 12/19/24 01/05/25 Rx Held on 01/12/25. Instructions: Resume on 01/18/25. Hold while taking Ketoralac for postop pain glucosamine-chondroitin 250 mg-200 1 tablet PO DAILY 01/05/25 01/12/25 History mg tablet multivitamin (Daily Multi-Vitamin 1 tablet PO DAILY 01/05/25 01/12/25 History tablet) saw palmetto 450 mg capsule 450 mg PO DAILY 01/05/25 01/12/25 History finasteride 1 mg tablet 1 mg PO DAILY #90 tabs 01/09/25 01/12/25 Rx ketorolac 10 mg tablet 10 mg PO Q6H 4 days #16 tabs 01/12/25 Rx oxycodone-acetaminophen 5 mg-325 0.5 - 1 tablet PO Q4H PRN pain #14 01/12/25 Rx mg tablet (Percocet) tabs Review of Systems Review of Systems All systems reviewed & are unremarkable except as noted in HPI and below ( HPI) Exam Const: General: comfortable, no acute distress, alert and awake HENMT: Head: normocephalic and atraumatic Mouth: Yes Normal oral and palatal mucosa present Eyes: Conjunctivae: conjunctivae normal Pupils: Equal, round and reactive pupils present EOM: EOMs intact bilaterally Neck: Neck: normal visual inspection, no lymphadenopathy and nontender Resp: Effort & Inspection: normal respiratory effort Auscultation: clear to auscultation bilaterally Cardio: Rate: regular rate Rhythm: regular rhythm Heart sounds: no gallops, no murmurs and no rubs GI: Inspection: non-distended GI Palp: Yes Soft to palpation, No Tenderness to palpation present (GI), No Hepatomegaly present and No Splenomegaly present : Male General Exam: Yes normal external exam and No hernia Penis: Yes normal penis Scrotum: scrotum normal Testes: Testes normal Skin: Lesions: no lesions Rashes: no rashes Neuro: General: no focal motor deficits and CN's II-XI intact bilaterally Cranial nerves: Yes Equal, round and reactive pupils present, Yes Bilaterally intact EOM present, Yes facial symmetry and Yes Midline tongue present Speech: normal speech Motor exam (neuro): 5/5 motor strength present throughout and Motor abnormalities not present Extrem: General: no clubbing, cyanosis or edema and edema Psych: Affect: normal affect Thought process: Normal thought process present Insight: Good insight present (Psych) DS: Summary Time Spent with Patient Time attestation: Total time spent providing and/or coordinating discharge services: DS: Admitting Diagnosis Discharge Date 01/12/2025 Admitting Diagnosis small symptomatic bilateral inguinal hernias- please see HPI for more thorough description- plan is to proceed with robotic laparoscopic repair of at least left inguinal hernia with mesh. Most likely will also proceed with right inguinal hernia robotically with mesh. The procedure, risks, benefits have been discussed. The usual length of the surgery, length of recovery, and postoperative restrictions have been discussed. All questions were answered, he wishes to go ahead. DS: Discharge Diagnosis Discharge Diagnosis (1) Bilateral inguinal hernia without obstruction or gangrene: Qualifiers: Recurrence: non-recurrent Qualified Code(s): K40.20 - Bilateral inguinal hernia, without obstruction or gangrene, not specified as recurrent Code(s): K40.20 - Bilateral inguinal hernia, without obstruction or gangrene, not specified as recurrent Status: Chronic Assessment and Plan: Both hernias repaired with robotic laparoscopic technique using mesh 01/12/[address] Gotti Discharge Plan Discharge Patient Disposition: Home Discharge Instructions: 1. May shower the day after surgery over incisions. 2. Call office for: -Wound increasingly painful or bleeding -Vomiting -Fever of greater than 101 degrees 3. Wear scrotal support at all times except when sleeping or showering for 1 week 4. If no bowel movement for three days, take 1 oz. (30 ml) Milk of Magnesia, if no results, take Fleets enema. 5. No heavy lifting > 10-15 pounds for 2 weeks. 6. No driving for 3 days or while taking narcotic pain medications. 7. Up walking 10-30 minutes three times per day. 8. Resume previous home medications. 9. Follow-up 10-14 days in office for wound check or as previously scheduled. 10. Oral pain medications prescription to be sent home with patient. 11. NUTRITION: Start out by drinking fluids and increase your diet as tolerated. If you experience nausea, try dry toast, crackers, and 7-UP. If nausea or vomiting persists, contact your surgeon?s office. Patient Language: Mohawk Stand Alone Forms: General Discharge Instructions Follow-up/Referrals: Aden Gotti MD [Physician, General Surgery] - 2 Weeks Discharge Medications: New ketorolac 10 mg tablet 10 mg PO Q6H 4 Days Qty: 16 0RF oxycodone-acetaminophen [Percocet] 5-325 mg tablet 0.5 - 1 tablet PO Q4H PRN (Reason: pain) Qty: 14 0RF Continued finasteride 1 mg tablet 1 mg PO DAILY Qty: 90 3RF multivitamin [Daily Multi-Vitamin] Tablet 1 tablet PO DAILY saw palmetto 450 mg capsule 450 mg PO DAILY glucosamine-chondroitin 250-200 mg tablet 1 tablet PO DAILY Rx Instructions: give after food/meal pravastatin 20 mg tablet See Rx Instructions .ROUTE .COMPLEX Qty: 90 0RF Dose Instruction: TAKE 1 TABLET BY MOUTH DAILY Rx Instructions: TAKE 1 TABLET BY MOUTH DAILY Held meloxicam 15 mg tablet 15 mg PO DAILY Qty: 90 1RF Hold Instructions: Resume on 01/18/25. Hold while taking Ketoralac for postop pain
--- NOTE | 2025-01-12 08:18 | WPDHPUPDATE1 ---
History and Physical Update Update Date/Time: 01/12/25 08:18 History and Physical has been reviewed, including an updated exam of the patient. There are NO changes in the patient's condition. Risks, benefits, and alternatives have been discussed and questions answered. Patient agrees to proceed with procedure.
[2025-01-12] MEDS: ACETAMINOPHEN 500 MG TABLET 1000 MG PO (10:26)
[2025-01-12] MEDS: LACTATED RINGERS 1,000 ML 30 ML IV CONT ×2 (10:40→14:55)
[2025-01-12] MEDS: KETOROLAC 15 MG/ML VIAL (*BKC) IV PUSH ×2 (10:42→14:37)
--- NOTE | 2025-01-12 11:09 | WPDANESEPPF ---
Anes - Initial Pre Proc Eval Procedure: Operation Date: 01/12/25 12:00 Proposed Procedures p Robotic Assisted Bilateral Inguinal Hernia Repair with Mesh - Aden Gotti MD Date/Time: 01/12/25 11:09 Surgeon: Aden Gotti MD Pre Op Diagnosis: Bilateral Inguinal Hernia Patient Data Age: 59 Gender: M Height: 1.78 m Weight: 72.2 kg Last Vital Signs Temp 97.5 F L 01/12/25 10:08 Pulse 62 01/12/25 10:08 Resp 16 01/12/25 10:08 BP 136/73 01/12/25 10:08 Pulse Ox 100 01/12/25 10:08 O2 Del Method Room Air 01/12/25 10:08 Allergies Allergy/AdvReac Type Severity Reaction Status Date / Time No Known Allergies Allergy Mild Verified 01/12/25 10:54 Home Medications ?Medication ?Instructions ?Recorded ?Confirmed ?Type pravastatin 20 mg tablet See Rx Instructions .Route 08/01/24 01/12/25 Rx .COMPLEX #90 tabs meloxicam 15 mg tablet 15 mg PO DAILY #90 tabs 12/19/24 01/05/25 Rx glucosamine-chondroitin 250 mg-200 1 tablet PO DAILY 01/05/25 01/12/25 History mg tablet multivitamin (Daily Multi-Vitamin 1 tablet PO DAILY 01/05/25 01/12/25 History tablet) saw palmetto 450 mg capsule 450 mg PO DAILY 01/05/25 01/12/25 History finasteride 1 mg tablet 1 mg PO DAILY #90 tabs 01/09/25 01/12/25 Rx Patient hx anesthesia problems: none Family hx anesthesia problems: none Results Review: All pre-operative results and documents have been reviewed as part of the pre-operative evaluation. [facility] Past Medical History Medical History Mixed hyperlipidemia Surgical History Surgical History History of knee surgery Family History Family History Mother Cerebrovascular accident Father Cerebrovascular accident Social History Social History Smoking status: Never smoker Alcohol intake: current Drinks per week: 0 Alcohol use details: 1 drink every 3-4 weeks Substance use: never Substance use type: does not use Do You Feel Safe in your Home?: Yes Lack of Transportation: No Lack of Food: Never True Current Housing: I Have Housing Concerned About Future Housing: No Difficulty Paying Gas/Electric Bills: No Difficulty Paying for Meds: No Currently Unemployed: No Education: Bachelor's Degree Difficulty w/ Childcare or Family Care: No Living arrangements: with family Gender identity (if verbalized by the patient): Male Spiritual care concerns: No Anes - Eval Final PreProcedure Day of Procedure 01/12/25 11:09 Patient weight: normal Heart: regular rate and rhythm Lungs: clear to auscultation Airway: Mallampati scale class II Neurological: alert and oriented Last oral intake: >/= 8 hours ASA classification: II Emergent: no Anesthetic plan: proceed Anesthesia type and monitoring: general ETT and standard monitoring Results Review: All pre-operative results and documents have been reviewed as part of the pre-operative evaluation. Informed Consent: The patient's anesthetic plan and its attendant risks and benefits were discussed with the patient/family/POA. Questions were solicited and answers provided to the satisfaction of the patient/family/POA.
[2025-01-12] MEDS: ceFAZolin 2 GM in SODIUM CHLORIDE 0.9% IV 50 ML 100 ML IVPB (12:00)
[2025-01-12] MEDS: BUPIVACAINE/EPINEPHRINE 0.5% 30 ML VIAL INFILTRATE (12:53)
--- NOTE | 2025-01-12 15:18 | W.PM.PROC2 ---
Procedure Note - Detailed Date of Procedure 01/12/25 Pre-op Diagnosis Bilateral Inguinal Hernia Post-op Diagnosis Same Procedure Performed Robotic laparoscopic repair bilateral inguinal hernias with mesh Surgeon Aden Gotti MD Juvenile Corrections Officer Stefany DOMINGUEZ Anesthesia General and Local Indications Patient has had left inguinal pain and an ultrasound that showed a left inguinal hernia with bowel at the hernia site. He previously had right inguinal pain and a CT scan that showed a fat containing right inguinal hernia. He is taken to surgery now for robotic laparoscopic repair bilateral inguinal hernias Findings Both hernias were direct inguinal hernias. Both were small but the left was slightly blue larger than the right. Description of Procedure Patient was taken to surgery and induced into general anesthesia. The abdomen is prepped and draped. Trocars were placed in the usual fashion. The patient was placed in Trendelenburg. The robot was brought into the field. The instruments were positioned appropriately after targeting. The surgeon then went to the robotic console. Starting on the left side, an anterior peritoneal flap was created starting laterally and proceeding medially to the median umbilical ligament. The flap was then dissected broadly. Medially dissection was carried down to Ivan's ligament. Ivan's ligament and the pubis were exposed. Dissection was carried out medially beyond the pubis at least a couple of cm. This dissection was extended anteriorly exposing the medial aspect of the right rectus muscle. I then went back and continued to develop the flap at its lateral aspect and then in the area of the spermatic cord vessels. The cord structures were carefully freed from the peritoneum. Some fatty tissue associated with the inguinal canal was removed. The direct hernia was noted and fatty tissue was removed from there leaving transversalis fascia in place. Eventually the peritoneum was dissected posteriorly to an adequate distance for mesh placement. I then turned my attention to the right side. Basically, this was a mirror image of the left side. Anterior peritoneal flap was developed. It was dissected broadly exposing Ivan's ligament and communicating with the medial dissection from the other side. The direct hernia was reduced leaving transversalis fascia. Cord structures were carefully dissected and the peritoneal flap was dissected about 5 cm posterior to the internal ring. Once the dissection was adequate, an extra-large right, mid, 3DMax mesh was introduced. This was positioned appropriately over the inguinal canal structures. 3-0 Vicryl suture was used to suture the mesh to Ivan's ligament as well as to the anterior abdominal wall both medially and laterally. I then had the left sided extra-large, 17 x 12, mid 3DMax mesh introduced. This was also positioned appropriately over the inguinal canal structures. It was secured in place with 3-0 Vicryl as had been the right side. The 2 meshes overlapped in the midline but were not sutured together. The dissection and mesh looked very good. I then closed the left-sided peritoneal flap with running 3-0 V lock suture. The right-sided peritoneal flap was closed with running 3-0 V lock suture. A small hole on the right side of the peritoneal flap was closed with 3-0 Vicryl. We then removed all residual suture and needles. All looked good. We evacuated CO2 and removed the instruments and undocked the robot. We evacuated CO2 thoroughly and then removed the trocars. Skin wounds were closed with subcuticular 4-0 Monocryl skin suture. Sponge and needle counts were correct x2. Implants Right and left pieces of extra-large, 17 x 12 cm, mid 3DMax mesh Estimated Blood Loss -5 Drains No Packing No Pathology None sent Complications None Condition Stable Disposition PACU [facility] Billing Surgery - Charge Forward: Surgery Billing (Robotic laparoscopic repair bilateral inguinal hernias with mesh)
[2025-01-12] MEDS: fentaNYL CITRATE INJ (*CRX) 100 MCG/2 ML VIAL 25 MCG IV PUSH ×4 (15:30→16:25)
--- NOTE | 2025-01-12 16:00 | ECG_ITS ---
Test Date: 2025-01-12 16:20:36 Measurements Intervals Mary Esther Rate: 68 P: 55 NE: 170 QRS: 37 QRSD: 104 T: 37 QT: 396 QTc: 424 Interpretive Statements SINUS RHYTHM WITH OCCASIONAL SUPRAVENTRICULAR PREMATURE COMPLEXES BASELINE ARTIFACT- I, II, III, AVR, AVL ,AVF BORDERLINE ECG Compared to ECG 01/09/2025 09:51:57 No significant changes Electronically Signed On 01-12-2025 16:42:04 CDT by Bk Borden D.O.
[2025-01-12] MEDS: oxyCODONE HCL (*CRX) 5 MG TAB IR PO (17:08)
== END 2025-01-12 17:55 | disposition home or self-care (01) ==
PROVIDERS: PCP Family Medicine; Visit Provider Surgery
PROC: 8E0Y4CZ Robotic Assisted Procedure of Lower Extremity, Percutaneous Endoscopic Approach (ICD-10-PCS; CPT 49650; principal; 2025-01-12 12:00)
DX: K40.20 Bilateral inguinal hernia, without obstruction or gangrene, not specified as recurrent (principal)
CPT/HCPCS: 49650; S2900; 93005; J0690; A9270; C1781; J1100; J1885; J2003; J2250; J2405; J2704; J3010; J7120

== ENCOUNTER 2025-01-19 10:00 | Emergency (ER) | payer BC, SELFPAY ==
--- OUTSIDE RECORDS SUMMARY | 2009-05-14 07:45 | XMS_ITS | Continuity of Care Document ---
Author Organization [facility] Address [address] [facility] [address] [place] [address] Phone Care Team Providers Care Banquet Server Name Role Phone Nicole Coker Unavailable Unavailable Procedures Procedure Date Eye Exam Established Pt Eye Exam, New Patient Advance Directives Directive Yes / No Effective Date File Name No Information Encounters Encounter Description Practice Location Reason(s) For Visit Diagnoses Date Provider Providers Copied on Encounter [facility], [address] [place] [address] [address], [place], [place], [id number], tel:[phone] [facility] No Information 9-200 9 Sheela Rivera. [address] , [address], [place], [place], [facility], . tel:[phone] [facility], [address] [place] [address] [address], [place], [place], [id number], tel:[phone] [facility] No Information 5-200 9 Sheela Bradley [address] , [address], [place], [place], [facility], [place]. tel:[phone] Family History Family Member Type Diagnosis Age At Onset No Information Payers Payer name Insurance type Covered republican ID Authoriza tion(s) No Information Social History [...]
--- NOTE | ~2025-01-19 | CT_ITS ---
EXAMINATION: CT abdomen pelvis wo con DATE: 01/19/2025 11:01 INDICATION: Flank pain. Back spasms. TECHNIQUE: Computed tomography (CT) of the abdomen and pelvis was performed with 100 mL Omnipaque-350 intravenous contrast. Automated exposure control and iterative reconstruction technique were employed. The dose-length product was 294.04 mGy-cm. COMPARISON: None FINDINGS: Mild dependent atelectasis in the bilateral lower lobes. Heart size is normal. No pericardial or pleural effusion. Liver, gallbladder, spleen, pancreas, bilateral adrenal glands and kidneys are normal. Bladder is normal. Bowels including the appendix are normal. Very small fat-containing umbilical hernia. Postoperative change of likely bilateral inguinal hernia repairs with small residual fat in the proximal right inguinal canal. No abscess or free intraperitoneal gas or fluid. No pathologically enlarged abdominal or pelvic lymphadenopathy. Mild lumbar levocurvature mild to moderate lumbar and lower thoracic spondylosis. IMPRESSION: 1. Postoperative change of prior bilateral inguinal hernia repair with no abscess or other acute intra-abdominal/pelvic process. Reviewed, dictated and finalized at location A. IMPRESSION: 1. Postoperative change of prior bilateral inguinal hernia repair with no absce ss or other acute intra-abdominal/pelvic process.
[2025-01-19 10:11] VITALS: BP 143/81; PULSE 66; RESP 18; TEMP 36.4; O2SAT 100
--- OUTSIDE RECORDS SUMMARY | 2025-01-19 10:12 | XMS_ITS | Clinical Summary ---
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 09/03/2014 Social History Tobacco Use Types Packs/Day Years Used Date Smoking Tobacco: Never Assessed Sex and Gender Information Value Date Recorded Sex Assigned at Not on file 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
--- OUTSIDE RECORDS SUMMARY | 2025-01-19 10:12 | XMS_ITS | Clinical Summary ---
Author Organization [facility] Address [address] [place] [address] Care Team Providers Care Flower Cheniller Name Role Phone Pro Berger MD Primary Care Provider [phone] Source Comments [facility],non-[facility] Affiliates and Associated Physician Practices is amultiple site organization consisting of ambulatory clinics and hospital sitesin [place], [place], [place] and [place]. This disclosure is being madepursuant to the Care Everywhere program and may not contain all information available regarding this patient. 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
[2025-01-19 10:31] VITALS: BP 137/93; PULSE 68; RESP 18; O2SAT 100
--- OUTSIDE RECORDS SUMMARY | 2025-01-19 10:52 | XMS_ITS | Clinical Summary ---
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
--- OUTSIDE RECORDS SUMMARY | 2025-01-19 10:52 | XMS_ITS | Clinical Summary ---
Author Organization [facility] Address [address] [place] [address] Care Team Providers Care Cigar Making Supervisor Name Role Phone Pro Berger MD Primary Care Provider [phone] Source Comments [facility],non-[facility] Affiliates and Associated Physician Practices is amultiple site organization consisting of ambulatory clinics and hospital sitesin [place], [place], [place] and [place]. This disclosure is being madepursuant to the Care Everywhere program and may not contain all information available regarding this patient. 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
[2025-01-19] MEDS: KETOROLAC 15 MG/ML VIAL (*BKC) IV PUSH (11:10)
[2025-01-19] MEDS: diazePAM INJ (*CRX) 10 MG/2 ML SYRINGE 5 MG IV PUSH (11:11)
[2025-01-19] MEDS: LIDOCAINE 5% PATCH 1 PATCH TRANSDERM (11:11)
[2025-01-19 11:15] LABS: Hematocrit 44.8 % (42.0-52.0); Hemoglobin 14.9 g/dL (14.0-18.0); Immature Granulocyte Percent A 0.4 % (0-0.5); Lymphocytes Absolute Auto 2.40 K/mm3 (0.9-3.2); Mean Corpuscular HGB Conc 33.3 g/dl (32-36); Mean Corpuscular Hemoglobin 30.3 pg (26-34); Mean Corpuscular Volume 91.2 fl (80-100); Nucleated Red Blood Cells Absolute Auto 0.000 K/mm3 (0.0-0.012); Nucleated Red Blood Cells Perc 0.0 % (0.0-0.2); Platelet Count Result 268 k/mm3 (150-375); Red Blood Count 4.91 M/mm3 (4.6-6.20); White Blood Count 8.1 K/mm3 (4.5-10.0)
[2025-01-19 11:32] LABS: Alanine Aminotransferase 31 U/L (6-50); Albumin Level 4.2 g/dL (3.5-5.1); Alkaline Phosphatase 69 U/L (38-126); Anion Gap 7 mmol/L (4-12); Aspartate Amino Transferase 43 U/L (17-59); Bilirubin,Total 0.7 mg/dL (0.2-1.3); Blood Urea Nitrogen 17 mg/dL (9-20); Calcium 9.6 mg/dL (8.4-10.2); Carbon Dioxide 28 mmol/L (22-30); Chloride 102 mmol/L (98-107); Estimated CRCL calculation 86 ml/min; Estimated Glomerular Filt Rate > 60; Glucose 117 mg/dL (65-110); Lipase 82 U/L (23-300); Potassium 4.2 mmol/L (3.4-5.0); Sodium 137 mmol/L (137-145); Total Protein 7.3 g/dL (6.3-8.2)
[2025-01-19] MEDS: MORPHINE SULFATE (*CRX) 4 MG/ML INJ IV PUSH (12:32)
--- NOTE | 2025-01-19 12:33 | ED_ITS ---
HPI - General Adult General Chief complaint: Back Pain/Injury Stated complaint: Back pain Time Seen by Provider: 01/19/25 10:24 History of Present Illness HPI narrative: Patient is 59-year-old gentleman who presents emergency department chief complaint of back spasms. Patient reports that he recently had hernia surgery done in our facility reports that he started having spasms in his lumbar region the patient states he has no bowel or bladder incontinence denies footdrop denies numbness or tingling the patient reports no trauma. Related Data Home Medications ?Medication ?Instructions ?Recorded ?Confirmed ?Last Taken ?Type glucosamine-chondroitin 250 mg-200 1 tablet PO DAILY 0 01/05/25 01/12/25 01/11/25 History mg tablet multivitamin (Daily Multi-Vitamin 1 tablet PO DAILY 01/12/25 01/11/25 History tablet) saw palmetto 450 mg capsule 450 mg PO DAILY 01/05/25 0 01/12/25 01/11/25 History Allergies Allergy/AdvReac Type Severity Reaction Status Date / Time No Known Allergies Allergy Mild Verified 01/12/25 10:54 Review of Systems 2 Review of Systems: A 10 system review of systems was completed on the patient and is negative except for what is stated in the HPI. Nursing and ancillary documentation was reviewed. PMFSH Past Medical History Medical History Mixed hyperlipidemia Surgical History Surgical History History of knee surgery Family History Family History Mother Cerebrovascular accident Father Cerebrovascular accident Social History Social History Smoking status: Never smoker Alcohol intake: current Drinks per week: 0 Alcohol use details: 1 drink every 3-4 weeks Substance use: never Substance use type: does not use Do You Feel Safe in your Home?: Yes Lack of Transportation: No Lack of Food: Never True Current Housing: I Have Housing Concerned About Future Housing: No Difficulty Paying Gas/Electric Bills: No Difficulty Paying for Meds: No Currently Unemployed: No Education: Bachelor's Degree Difficulty w/ Childcare or Family Care: No Living arrangements: with family Gender identity (if verbalized by the patient): Male Spiritual care concerns: No Exam 2 Narrative: GENERAL: Well-appearing, well-nourished, and in no acute distress. HEAD: Normocephalic, atraumatic. EYES: PERRLA and EOMI. ENT: Nares clear, no rhinorrhea or epistaxis. Mucous membranes moist. NECK: Supple. CHEST: Clear to auscultation. No respiratory distress. HEART: Regular rate and rhythm. No murmur heard. Normal peripheral pulses. ABDOMEN: Soft, nontender, nondistended, normal active bowel sounds. EXTREMITIES: Normal range of motion. No edema. SKIN: Warm, dry, no rash. NEURO: No focal deficits. Alert and oriented x3. PSYCH: Normal mood and affect. Course Vital Signs Vital signs: Vital Signs Temperature 36.4 C 01/19/25 10:11 Pulse Rate 66 01/19/25 10:11 Respiratory Rate 18 01/19/25 10:11 Blood Pressure 143/81 H 01/19/25 10:11 Pulse Oximetry 01/19/25 10:11 Temperature 36.4 C 01/19/25 10:11 Pulse Rate 68 01/19/25 10:31 Respiratory Rate 18 01/19/25 10:31 Blood Pressure 137/93 H 01/19/25 10:31 Pulse Oximetry 100 01/19/25 10:31 Medical Decision Making MDM Narrative Medical decision making narrative: Deferred on does include musculoskeletal pain, intra-abdominal infection, postsurgical complication, Patient's pain was controlled in the emergency department CT scan of the abdomen pelvis showed no acute abnormality Laboratory studies were obtained on the patient that showed normal CBC been normal CMP CT scan of the abdomen pelvis showed no acute abnormality other than postoperative changes Vital Signs Vital Signs: Vital Signs Temperature 36.4 C 01/19/25 10:11 Pulse Rate 66 01/19/25 10:11 Respiratory Rate 18 01/19/25 10:11 Blood Pressure 143/81 H 01/19/25 10:11 Pulse Oximetry 01/19/25 10:11 Temperature 36.4 C 01/19/25 10:11 Pulse Rate 68 01/19/25 10:31 Respiratory Rate 18 01/19/25 10:31 Blood Pressure 137/93 H 01/19/25 10:31 Pulse Oximetry 100 01/19/25 10:31 Lab Data 01/19/25 11:06 01/19/25 11:06 Labs: Lab Results 01/19/25 01/19/25 Range/Units 11:06 12:53 WBC 8.1 (4.5-10.0) K/mm3 RBC 4.91 (4.6-6.20) M/mm3 Hgb 14.9 (14.0-18.0) g/dL Hct 44.8 (42.0-52.0) % MCV 91.2 (80-100) fl MCH 30.3 (26-34) pg MCHC 33.3 (32-36) g/dl RDW 13.2 (11.5-14.5) % Plt Count 268 (150-375) k/mm3 MPV 10.6 H (7.4-10.4) fl Immature Gran % (Auto) 0.4 (0-0.5) % Neut % (Auto) 56.9 (45.5-73.1) % Lymph % (Auto) 29.6 (18.3-44.2) % [place] % (Auto) 8.6 H (2.6-8.5) % Eos % (Auto) 3.6 (0-4.4) % Baso % (Auto) 0.9 (0.2-1.2) % Lymph # (Auto) 2.40 (0.9-3.2) K/mm3 [place] # (Auto) 0.7 H (0.1-0.6) K/mm3 Eos # (Auto) 0.3 (0-0.3) K/mm3 Baso # (Auto) 0.1 (0.0-0.1) K/mm3 Abs Immat Gran (auto) 0.03 (0.00-0.031) K/mm3 Absolute Neuts (auto) 4.6 (1.3-6.7) K/mm3 Absolute Nucleated RBC 0.000 (0.0-0.012) K/mm3 Nucleated RBC % 0.0 (0.0-0.2) % Sodium 137 (137-145) mmol/L Potassium 4.2 (3.4-5.0) mmol/L Chloride 102 (98-107) mmol/L Carbon Dioxide 28 (22-30) mmol/L Anion Gap 7 (4-12) mmol/L BUN 17 (9-20) mg/dL Creatinine 0.82 (0.7-1.3) mg/dL Estim Creat Clear Calc 86 ml/min Estimated GFR > 60 (59 - ) Glucose 117 H (65-110) mg/dL Calcium 9.6 (8.4-10.2) mg/dL Total Bilirubin 0.7 (0.2-1.3) mg/dL AST 43 (17-59) U/L ALT 31 (6-50) U/L Alkaline Phosphatase 69 (38-126) U/L Total Protein 7.3 (6.3-8.2) g/dL Albumin 4.2 (3.5-5.1) g/dL Lipase 82 (23-300) U/L Urine Color Yellow (Yellow) Urine Appearance Clear (Clear) Urine pH 6.5 (5.0-9.0) Ur Specific [place] 1.012 (1.001-1.035) Urine Protein Negative (Negative) mg/dL Urine Glucose (UA) Negative (Negative) mg/dL Urine Ketones Negative (Negative) mg/dL Ur Blood (Man) Negative (Negative) Urine Nitrate Negative (Negative) Urine Bilirubin Negative (Negative) Urine Urobilinogen 0.2 (<2.0) mg/dL Leukocyte Esterase Rfl Negative (Negative) VINCE/UL Discharge Plan Discharge Clinical Impression: Back pain, Lumbar paraspinal muscle spasm Patient Disposition: Home Condition: Stable Instructions: Antibiotic Form, Acute Low Back Pain (ED) Patient Language: Icelandic Prescriptions: New lidocaine [Lidoderm] 5 % adhesive patch,medicated 1 patch topical DAILY Qty: 15 0RF Rx Instructions: leave on most painful area for up to 12 hrs cyclobenzaprine 10 mg tablet 10 mg PO TID PRN (Reason: muscle spasm) Qty: 21 0RF prednisone 20 mg tablet 40 mg PO DAILY 5 Days Qty: 10 0RF oxycodone-acetaminophen 5-325 mg tablet 1 tablet PO Q6H PRN (Reason: pain) 3 Days Qty: 12 0RF diclofenac potassium 50 mg tablet 50 mg PO TID PRN (Reason: pain) Qty: 21 0RF Rx Instructions: Do not take with the Toradol No Action finasteride 1 mg tablet 1 mg PO DAILY Qty: 90 3RF multivitamin [Daily Multi-Vitamin] Tablet 1 tablet PO DAILY saw palmetto 450 mg capsule 450 mg PO DAILY glucosamine-chondroitin 250-200 mg tablet 1 tablet PO DAILY Rx Instructions: give after food/meal ketorolac 10 mg tablet 10 mg PO Q6H 4 Days Qty: 16 0RF oxycodone-acetaminophen [Percocet] 5-325 mg tablet 0.5 - 1 tablet PO Q4H PRN (Reason: pain) Qty: 14 0RF pravastatin 20 mg tablet See Rx Instructions .ROUTE .COMPLEX Qty: 90 0RF Dose Instruction: TAKE 1 TABLET BY MOUTH DAILY Rx Instructions: TAKE 1 TABLET BY MOUTH DAILY meloxicam 15 mg tablet 15 mg PO DAILY Qty: 90 1RF Follow-up/Referrals: Umair Nelson MD [Primary Care Provider, Family Practice] Time of Disposition: 13:53
[2025-01-19 13:04] LABS: Add Urine Microscopic? NO; Appearance Urine Clear (Clear); Glucose Urine UA Negative (Negative); Leukocyte Esterase Ur Negative LEU/UL (Negative); Nitrate Urine Negative (Negative); Specific Grav Ur 1.012 (1.001-1.035)
[2025-01-19] MEDS: oxyCODONE/ACETAMINOPHEN (*CRX) 5-325 MG TABLET 1 TABLET PO (13:57)
== END 2025-01-19 14:56 | disposition home or self-care (01) ==
PROVIDERS: Emergency Provider Emergency Medicine; PCP Family Medicine
DX: M62.830 Muscle spasm of back (principal); M54.50 Low back pain, unspecified; E78.2 Mixed hyperlipidemia
CPT/HCPCS: 36415; 74176; 80053; 81003; 83690; 85025; 96374; 96375; 99284; A9270; J1885; J2270; J3360

== ENCOUNTER 2025-02-14 21:37 | Emergency (ER) | payer BC, SELFPAY ==
--- NOTE | ~2025-02-14 | XR_ITS ---
Examination: XR chest 2V Clinical History: cp Comparison: 05/19/2021 Technique: PA and Lateral Findings: Cardiomediastinal silhouette normal size and configuration. Lungs clear. No acute bony abnormality. IMPRESSION: 1. No acute cardiopulmonary findings. Reviewed, dictated and finalized at location R.
--- NOTE | 2025-02-14 21:41 | ECG_ITS ---
Test Date: 2025-02-14 21:52:22 Measurements Intervals Anthony Rate: 72 P: 26 RI: 196 QRS: 43 QRSD: 105 T: 50 QT: 369 QTc: 404 Interpretive Statements SINUS RHYTHM WITH FREQUENT SUPRAVENTRICULAR PREMATURE COMPLEXES ABNORMAL ECG Compared to ECG 01/12/2025 16:20:36 No significant changes Electronically Signed On 02-15-2025 05:22:05 CDT by Bk Borden D.O.
[2025-02-14 21:47] VITALS: PULSE 69; RESP 15; O2SAT 99
[2025-02-14 21:48] VITALS: BP 171/94; PULSE 72; PULSE 80; RESP 14; RESP 15; TEMP 36.7; O2SAT 98; O2SAT 99
[2025-02-14 22:06] LABS: Hematocrit 40.1 % (42.0-52.0); Hemoglobin 13.4 g/dL (14.0-18.0); Immature Granulocyte Percent A 0.2 % (0-0.5); Lymphocytes Absolute Auto 3.96 K/mm3 (0.9-3.2); Mean Corpuscular HGB Conc 33.4 g/dl (32-36); Mean Corpuscular Hemoglobin 30.7 pg (26-34); Mean Corpuscular Volume 91.8 fl (80-100); Nucleated Red Blood Cells Absolute Auto 0.000 K/mm3 (0.0-0.012); Nucleated Red Blood Cells Perc 0.0 % (0.0-0.2); Platelet Count Result 265 k/mm3 (150-375); Red Blood Count 4.37 M/mm3 (4.6-6.20); White Blood Count 9.4 K/mm3 (4.5-10.0)
[2025-02-14 22:14] LABS: Alanine Aminotransferase 31 U/L (6-50); Albumin Level 4.1 g/dL (3.5-5.1); Alkaline Phosphatase 81 U/L (38-126); Anion Gap 7 mmol/L (4-12); Aspartate Amino Transferase 40 U/L (17-59); Bilirubin,Total 0.4 mg/dL (0.2-1.3); Blood Urea Nitrogen 17 mg/dL (9-20); Calcium 9.0 mg/dL (8.4-10.2); Carbon Dioxide 28 mmol/L (22-30); Chloride 102 mmol/L (98-107); Estimated CRCL calculation 88 ml/min; Estimated Glomerular Filt Rate > 60; Glucose 115 mg/dL (65-110); Lipase 163 U/L (23-300); Potassium 4.0 mmol/L (3.4-5.0); Sodium 137 mmol/L (137-145); Total Protein 7.0 g/dL (6.3-8.2)
[2025-02-14 22:17] LABS: INR 1.0; Prothrombin Time 13.1 Seconds (11.1-14.7)
[2025-02-14 22:18] LABS: Partial Thromboplastin Time 26.4 Seconds (22.3-36.8)
[2025-02-14 22:26] LABS: Troponin I < 0.012 ng/mL (0.000-0.034)
--- NOTE | 2025-02-14 22:53 | ED_ITS ---
HPI - Chest Pain General Chief Complaint: Chest Pain Stated Complaint: Medial chest pain-skipping Time Seen by Provider: 02/14/25 22:02 History of Present Illness HPI narrative: This is a 59-year-old male with no significant past medical history presents the ED for palpitations and chest pressure. Patient states for the past few days, he has been having the symptoms. He states that he was told after his hernias repair a month ago that he may have had AFib and was told to follow up on it but he has not followed up with anyone. He denies lightheadedness, dizziness. He has no prior cardiac history that he is aware of. He is a nonsmoker. Related Data Home Medications ?Medication ?Instructions ?Recorded ?Confirmed ?Last Taken ?Type multivitamin (Daily Multi-Vitamin 1 tablet PO DAILY 01/30/25 01/11/25 History tablet) Allergies Allergy/AdvReac Type Severity Reaction Status Date / Time No Known Allergies Allergy Mild Verified 02/14/25 21:57 Review of Systems 2 Review of Systems: Gen.: Denies fevers or chills Eyes: Denies eye pain or visual change ENT: Denies congestion Respiratory: Denies shortness of breath or cough CV: As per HPI GI: Denies abdominal pain nausea, emesis or diarrhea denies burning, urgency, frequency or hematuria Musculoskeletal: Denies back pain or muscle pain Neuro: Denies numbness, tingling, weakness or focal weakness Skin: Denies rash Except as documented, all other systems reviewed and negative PMFSH Past Medical History Medical History Mixed hyperlipidemia Surgical History Surgical History Hx of bilateral inguinal hernia repair 01/12/25 Robotic laparoscopic repair bilateral inguinal hernias with mesh History of knee surgery Family History Family History Mother Cerebrovascular accident Father Cerebrovascular accident Social History Social History Smoking status: Never smoker Alcohol intake: current Drinks per week: 0 Alcohol use details: 1 drink every 3-4 weeks Substance use: never Substance use type: does not use Do You Feel Safe in your Home?: Yes Lack of Transportation: No Lack of Food: Never True Current Housing: I Have Housing Concerned About Future Housing: No Difficulty Paying Gas/Electric Bills: No Difficulty Paying for Meds: No Currently Unemployed: No Education: Bachelor's Degree Difficulty w/ Childcare or Family Care: No Living arrangements: with family Gender identity (if verbalized by the patient): Male Spiritual care concerns: No Exam 2 Narrative: APPEARANCE: No acute distress, nontoxic, resting in bed EYES: EOMI HEENT: Normocephalic, atraumatic, OMM RESPIRATORY: No respiratory distress Clear to auscultation bilaterally with no rhonchi wheezing or rales. CARDIOVASCULAR: Regular rate and irregular rhythm without murmurs rubs or gallops. ABDOMINAL: Soft, nontender, nondistended, no rebound or guarding MUSCULOSKELETAl: Moves all extremities. No clubbing, cyanosis or edema. NEURO: Awake and alert. Following commands, speech normal, no focal deficits SKIN:: Warm, dry. No rashes lesions or abrasions PSYCHIATRIC: Normal affect/mood, Course Vital Signs Vital signs: Vital Signs Pulse Rate 69 02/14/25 21:47 Respiratory Rate 15 02/14/25 21:47 Pulse Oximetry 99 02/14/25 21:47 Temperature 98.1 F 02/14/25 21:48 Pulse Rate 67 02/15/25 00:12 Respiratory Rate 22 H 02/15/25 00:12 Blood Pressure 171/94 H 02/14/25 21:48 Pulse Oximetry 97 02/15/25 00:12 Oxygen Delivery Room Air 02/14/25 23:07 MDM - Chest Pain MDM Narrative Medical decision making narrative: 59-year-old male with no significant past medical history presenting for palpitations. On initial evaluation, patient was in no acute distress, afebrile, hemodynamically stable. Heart and lungs were clear. Abdomen was soft nontender. CBC and CMP were without significant abnormalities. Troponin negative. EKG did reveal frequent PACs. Upon discussing more with the patient and talking to him while monitoring the telemetry, I was able to ascertain that he was feeling these PACs in that was likely the source of his symptoms. He otherwise has no chest pain or lightheadedness at this time. 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 He was given a referral to Cardiology for further evaluation and treatment. Patient and family were agreeable to the plan. Given strict return precautions. Differential Diagnosis Differential diagnosis: Likely other (Arrhythmia, ACS, electrolyte abnormality,) Medical Records Data Attestation: I reviewed the patient's medical records. Lab Data Attestation: I reviewed the patient's lab results. 02/14/25 22:00 02/14/25 22:00 Labs: Lab Results 02/14/25 Range/Units 22:00 WBC 9.4 (4.5-10.0) K/mm3 RBC 4.37 L (4.6-6.20) M/mm3 Hgb 13.4 L (14.0-18.0) g/dL Hct 40.1 L (42.0-52.0) % MCV 91.8 (80-100) fl MCH 30.7 (26-34) pg MCHC 33.4 (32-36) g/dl RDW 13.6 (11.5-14.5) % Plt Count 265 (150-375) k/mm3 MPV 10.7 H (7.4-10.4) fl Immature Gran % (Auto) 0.2 (0-0.5) % Neut % (Auto) 43.2 L (45.5-73.1) % Lymph % (Auto) 41.9 (18.3-44.2) % [place] % (Auto) 8.9 H (2.6-8.5) % Eos % (Auto) 5.1 H (0-4.4) % Baso % (Auto) 0.7 (0.2-1.2) % Lymph # (Auto) 3.96 H (0.9-3.2) K/mm3 [place] # (Auto) 0.8 H (0.1-0.6) K/mm3 Eos # (Auto) 0.5 H (0-0.3) K/mm3 Baso # (Auto) 0.1 (0.0-0.1) K/mm3 Abs Immat Gran (auto) 0.02 (0.00-0.031) K/mm3 Absolute Neuts (auto) 4.1 (1.3-6.7) K/mm3 Absolute Nucleated RBC 0.000 (0.0-0.012) K/mm3 Nucleated RBC % 0.0 (0.0-0.2) % PT 13.1 (11.1-14.7) Seconds INR 1.0 APTT 26.4 (22.3-36.8) Seconds Sodium 137 (137-145) mmol/L Potassium 4.0 (3.4-5.0) mmol/L Chloride 102 (98-107) mmol/L Carbon Dioxide 28 (22-30) mmol/L Anion Gap 7 (4-12) mmol/L BUN 17 (9-20) mg/dL Creatinine 0.80 (0.7-1.3) mg/dL Estim Creat Clear Calc 88 ml/min Estimated GFR > 60 (59 - ) Glucose 115 H (65-110) mg/dL Calcium 9.0 (8.4-10.2) mg/dL Magnesium 1.9 (1.6-2.3) mg/dL Total Bilirubin 0.4 (0.2-1.3) mg/dL AST 40 (17-59) U/L ALT 31 (6-50) U/L Alkaline Phosphatase 81 (38-126) U/L Troponin I < 0.012 (0.000-0.034) ng/mL Total Protein 7.0 (6.3-8.2) g/dL Albumin 4.1 (3.5-5.1) g/dL Lipase 163 (23-300) U/L Imaging Data Attestation: I personally reviewed and interpreted this imaging study as follows: (Normal cardiac silhouette, no consolidations, no effusions, no pulmonary vascular congestion) ECG Data EKG #1: Attestation: I personally reviewed and interpreted this ECG as follows: ECG completion date: 02/14/25 ECG completion time: 21:52 Interpretation: Sinus rhythm with frequent PACs, normal axis, normal intervals, no acute ST or T-wave changes Discharge Plan Discharge Clinical Impression: Arrhythmia Qualifiers: Arrhythmia type: other cardiac arrhythmia Qualified Code(s): I49.8 - Other specified cardiac arrhythmias Patient Disposition: Home Condition: Stable Instructions: Antibiotic Form Additional Instructions: Please call Cardiovascular in the morning to 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 Please call Dr. Merida, cardiology, to schedule a follow-up appointment. Return to the ED for any new or worsening symptoms. [id number]- rosetta ghosh Patient Language: Sierra Leonean Prescriptions: No Action multivitamin [Daily Multi-Vitamin] Tablet 1 tablet PO DAILY lidocaine [Lidoderm] 5 % adhesive patch,medicated 1 patch topical DAILY Qty: 15 0RF Rx Instructions: leave on most painful area for up to 12 hrs cyclobenzaprine 10 mg tablet 10 mg PO TID PRN (Reason: muscle spasm) Qty: 21 0RF prednisone 20 mg tablet 40 mg PO DAILY 5 Days Qty: 10 0RF diclofenac potassium 50 mg tablet 50 mg PO TID PRN (Reason: pain) Qty: 21 0RF Rx Instructions: Do not take with the Toradol pravastatin 20 mg tablet See Rx Instructions .ROUTE .COMPLEX Qty: 90 1RF Dose Instruction: TAKE 1 TABLET BY MOUTH DAILY Rx Instructions: TAKE 1 TABLET BY MOUTH DAILY Follow-up/Referrals: Umair Nelson MD [Primary Care Provider, Family Practice] Wild Adorno MD [Physician, Cardiology]
[2025-02-14 23:01] LABS: Magnesium 1.9 mg/dL (1.6-2.3)
[2025-02-14 23:03] VITALS: PULSE 63; RESP 16; O2SAT 97
[2025-02-14] MEDS: ASPIRIN 81 MG CHEWABLE TABLET 324 MG PO (23:15)
[2025-02-15 00:12] VITALS: PULSE 67; RESP 22; O2SAT 97
== END 2025-02-15 00:16 | disposition home or self-care (01) ==
PROVIDERS: Emergency Provider Student in an Organized Health Care Education/Training Program; PCP Family Medicine
DX: I49.1 Atrial premature depolarization (principal); E78.2 Mixed hyperlipidemia
CPT/HCPCS: 36415; 71046; 80053; 83690; 83735; 84484; 85025; 85610; 85730; 93005; 99284; A9270

== ENCOUNTER 2025-02-20 09:50 | Outpatient (CLI) | payer BC, SELFPAY ==
--- OUTSIDE RECORDS SUMMARY | 2009-05-14 07:45 | XMS_ITS | Continuity of Care Document ---
Author Organization [facility] Address [address] [facility] [address] [place] [address] Phone Care Team Providers Care Ice House Supervisor Name Role Phone Nicole Coker Unavailable Unavailable Procedures Procedure Date Eye Exam Established Pt Eye Exam, New Patient Advance Directives Directive Yes / No Effective Date File Name No Information Encounters Encounter Description Practice Location Reason(s) For Visit Diagnoses Date Provider Providers Copied on Encounter [facility], [address] [place] [address] [address], [place], [place], [id number], tel:[phone] [facility] No Information 9-200 9 Sheela Rivera. [address] , [address], [place], [place], [facility], . tel:[phone] [facility], [address] [place] [address] [address], [place], [place], [id number], tel:[phone] [facility] No Information 5-200 9 Sheela Bradley [address] , [address], [place], [place], [facility], [place]. tel:[phone] Family History Family Member Type Diagnosis Age At Onset No Information Payers Payer name Insurance type Covered green party ID Authoriza tion(s) No Information Social [...]
--- OUTSIDE RECORDS SUMMARY | 2025-02-20 10:40 | XMS_ITS | Clinical Summary ---
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 09/03/2014 Social History Tobacco Use Types Packs/Day Years Used Date Smoking Tobacco: Never Assessed Sex and Gender Information Value Date Recorded Sex Assigned at Not on file 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 Gender Identity Male 01/03/2023 8:20 AM CDT [...] Well Visit/Exam 18-64 1982 Covid-19 Vaccine ( season) 2025 03/03/2022, 03/14/2021, 08/25/2020, Additional history exists Influenza Vaccine (#1) 2025 , 02/26/2021, 02/15/2020, Additional history exists Zoster Vaccine Completed 01/13/2022, 07/14/2021 Pneumococcal vaccine <65 Aged Out No longer eligible based on patient's age to complete this topic Insurance [place] Care Teams Wall Insulation Sprayer Relationship Specialty Start Date End Date Umair Nelson MD PCP - General Family Practice 01/04/23 Wild Adorno MD [address] [place] [address] [place] [address] Consulting Physician Cardiology 02/15/25
--- OUTSIDE RECORDS SUMMARY | 2025-02-20 10:40 | XMS_ITS | Clinical Summary ---
Author Organization [facility] Address [address] [place] [address] Care Team Providers Care Infant Toddler Lead Teacher Name Role Phone Pro Berger MD Primary Care Provider [phone] Source Comments [facility] Affiliates and Associated Physician Practices is amultiple site organization consisting of ambulatory clinics and hospital sitesin [place], [place], [place]. This disclosure is being madepursuant to the Care Everywhere program and may not contain all information available regarding this patient. 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
--- NOTE | 2025-03-01 16:16 | WPDHOLTEREM ---
Holter/Event Monitor Holter/Event Monitor Date of procedure: 02/20/25 Holter/Event Procedure: 3-7 Day Holter Monitor Indications: Palpitations Conclusion: 1. 3 days holter monitor on 02/20/25. 2. Predominant rhythm is sinus rhythm. HR range 43-160 bpm; average HR 62 bpm. HR at 43 bpm was on 02/23/25 at 4:19 am. 3. There are occasional premature supraventricular complexes, rare supraventricular couplets, and rare supraventricular triplets. There are 3 episodes of supraventricular tachycardia with fastest at 143 bpm and longest lasting 16 seconds. 4. There are rare premature ventricular complexes. There is 1 episode of ventricular tachycardia at 160 bpm lasting 6 beats. 5. No significant pauses greater than 3 seconds. 6. Patient reports 7 episodes of symptoms of irregular beats, heaviness which demonstrate sinus rhythm, HR range 54-69 bpm with 3 episodes with PAC's.
== END 2025-02-20 09:51 | disposition home or self-care (01) ==
LOC: ANHCARD 09:57
PROVIDERS: PCP Family Medicine; Visit Provider Nurse Practitioner Family
DX: I49.3 Ventricular premature depolarization (principal); R00.2 Palpitations
CPT/HCPCS: 93242